=== PATIENT | male | born 1985 | race Caucasian/White ===

== ENCOUNTER 2024-09-18 11:40 | Emergency (ER) | payer OTHER, SELFPAY ==
[2024-09-18 11:45] VITALS: BP 142/88; PULSE 99; RESP 18; TEMP 36.7; O2SAT 100
--- NOTE | 2024-09-18 12:15 | ED.GENADULT ---
HPI - General Adult General Chief complaint: Skin/Abscess/Foreign Body Stated complaint: poison arline Source: patient Mode of arrival: ambulatory Limitations: no limitations History of Present Illness HPI narrative: Patient presents for evaluation of a pruritic rash to the face and bilateral upper extremities that started about 4 days ago. Two days prior to that time he was working outdoors. He attributes his symptoms to poison arline exposure. He has been using calamine for his symptoms. Denies any other treatments. Denies any other symptoms Related Data Allergies Allergy/AdvReac Type Severity Reaction Status Date / Time No Known Allergies Allergy Verified 09/18/24 12:01 Review of Systems Review of Systems: CONSTITUTIONAL: Denies fever, chills, or sweats. EYES: Denies visual changes, redness, or discharge. ENT: Denies rhinorrhea, congestion, sore throat, or otalgia. CARDIOVASCULAR: Denies chest pain, palpitations, or edema. RESPIRATORY: Denies cough or dyspnea. GASTROINTESTINAL: Denies abdominal pain, nausea, vomiting, or diarrhea. GENITOURINARY: Denies dysuria or hematuria. SKIN: Reports pruritic rash to the face and bilateral upper extremities MUSCULOSKELETAL: Denies back pain, joint pain, or myalgia. NEUROLOGIC: Denies headache, numbness, dizziness, or weakness. PSYCHIATRIC: Denies anxiety or depression. PMFSH Past Medical History Medical History No pertinent past medical history Surgical History Surgical History No pertinent past surgical history Family History Family History Mother Family history non-contributory Social History Social History Living arrangements: with family Gender identity (if verbalized by the patient): Male Spiritual care concerns: No Exam Narrative: GENERAL: Well-appearing, well-nourished, and in no acute distress. HEAD: Normocephalic, atraumatic. EYES: PERRLA and EOMI. ENT: Nares clear, no rhinorrhea or epistaxis. Mucous membranes moist. Oropharynx without tonsillar hypertrophy exudate or other lesions. Bilateral TMs pearly avendano nonbulging NECK: Supple. No adenopathy or masses. No carotid bruits or JVD CHEST: Clear to auscultation. No respiratory distress. No wheezes rales or rhonchi HEART: Regular rate and rhythm. No murmur heard. Normal peripheral pulses. ABDOMEN: Soft, nontender, nondistended, normal active bowel sounds. EXTREMITIES: Normal range of motion. No edema. SKIN: There are clustered raise erythematous vesicles to the face and bilateral upper extremities with presence of linear scratch stratton. There is dried calamine lotion to face and bilateral forearms NEURO: No focal deficits. Alert and oriented x3. PSYCH: Normal mood and affect. Course Course Emergency Course: This is a 39-year-old male who presented for evaluation of a pruritic rash to his face and bilateral upper extremities after poison arline exposure. Will start steroid taper. Benadryl for itching. Continue to use calamine. Follow-up with primary provider. Go to the ER for worsening symptoms. Pt in agreement with plan of care. Level of Care: Express Care Visit Vital Signs Vital signs: Vital Signs Temperature 36.7 C 09/18/24 11:45 Pulse Rate 99 09/18/24 11:45 Respiratory Rate 18 09/18/24 11:45 Blood Pressure 142/88 H 09/18/24 11:45 Pulse Oximetry 100 09/18/24 11:45 Oxygen Delivery Room Air 09/18/24 11:45 Temperature 36.7 C 09/18/24 11:45 Pulse Rate 99 09/18/24 11:45 Respiratory Rate 18 09/18/24 11:45 Blood Pressure 142/88 H 09/18/24 11:45 Pulse Oximetry 100 09/18/24 11:45 Oxygen Delivery Room Air 09/18/24 11:45 Medical Decision Making Vital Signs Vital Signs: Vital Signs Temperature 36.7 C 09/18/24 11:45 Pulse Rate 99 09/18/24 11:45 Respiratory Rate 18 09/18/24 11:45 Blood Pressure 142/88 H 09/18/24 11:45 Pulse Oximetry 100 09/18/24 11:45 Oxygen Delivery Room Air 09/18/24 11:45 Temperature 36.7 C 09/18/24 11:45 Pulse Rate 99 09/18/24 11:45 Respiratory Rate 18 09/18/24 11:45 Blood Pressure 142/88 H 09/18/24 11:45 Pulse Oximetry 100 09/18/24 11:45 Oxygen Delivery Room Air 09/18/24 11:45 Discharge Plan Discharge Clinical Impression: Poison arline dermatitis Patient Disposition: Home, Self-Care Condition: Stable Instructions: Antibiotic Form, Poison Arline (ED) Patient Language: Upper Sorbian Prescriptions: New prednisone 20 mg tablet See Rx Instructions .ROUTE .COMPLEX Qty: 18 0RF Rx Instructions: 2 tabs po daily x 5 days, then 1 tab po daily x 5 days, then 1/2 tab po daily x 6 days diphenhydramine HCl [Benadryl] 25 mg capsule 25 - 50 mg PO Q6H PRN (Reason: itching) Qty: 30 0RF Follow-up/Referrals: Benja Rose MD [Physician] - Time of Disposition: 12:14
== END 2024-09-18 12:24 | disposition home or self-care (01) ==
PROVIDERS: Emergency Provider Nurse Practitioner
DX: L23.7 Allergic contact dermatitis due to plants, except food (principal)
CPT/HCPCS: 99213; G0463